=== PATIENT | female | born 1960 | race Caucasian/White ===

== ENCOUNTER 2016-05-12 21:25 | Emergency (ER) | payer MEDICARE, OTHER ==
[2016-05-12 19:31] LABS: BASOPHILS 0.5 %; BASOPHILS ABSOLUTE 0.05 10/3/uL (0.0-0.16); EOSINOPHILS 1.2 %; EOSINOPHILS ABSOLUTE 0.12 10/3/uL (0.0-0.53); HEMATOCRIT 41.7 % (36.0-48.0); HEMOGLOBIN 13.9 g/dL (12.0-16.0); IMMATURE GRANULOCYTES 0.2 %; IMMATURE GRANULOCYTES ABSOLUTE 0.02 10/3/uL (0.0-0.11); LYMPHOCYTES 49.8 %; LYMPHOCYTES ABSOLUTE 4.88 10/3/uL (0.67-4.30); MEAN CORPUS HGB CONC 33.3 g/dL (32.0-36.0); MEAN CORPUSCULAR HEMOGLOB 30.2 pg (26.0-34.0); MEAN CORPUSCULAR VOLUME 90.5 fL (80-100); MEAN PLATELET VOLUME 8.7 fL (9.2-13.0); MONOCYTES ABSOLUTE 0.88 10/3/uL (0.21-1.20); NEUTROPHILS 39.3 %; NEUTROPHILS ABSOLUTE 3.84 10/3/uL (2.02-8.40); PLATELET COUNT 364 10/3/uL (150-400); RED CELL COUNT 4.61 10/6/uL (4.0-5.6); WHITE BLOOD CELLS 9.8 10/3/uL (4.5-10.5)
[2016-05-12 19:32] LABS: MANUAL DIFF NO %
[2016-05-12 19:46] LABS: ALBUMIN 3.5 G/DL (3.5-5.0); BUN (BLOOD UREA NITROGEN) 11 MG/DL (6-23); CALCIUM, SERUM 8.7 MG/DL (8.5-10.4); CHLORIDE, SERUM 109 MMOL/L (96-112); CO2 (CARBON DIOXIDE) 26 MMOL/L (24-34); CREATININE 0.92 MG/DL (0.55-1.02); GFR AFRICAN AMERICAN 81 ML/MIN (>=60); GFR NON AFRICAN AMERICAN 70 ML/MIN (>=60); GLOBULIN 3.5 G/DL (2.5-4.1); GLUCOSE, SERUM 99 MG/DL (60-99); POTASSIUM, SERUM 3.6 MMOL/L (3.5-5.3); SGOT(AST) 26 U/L (5-40); SGPT(ALT) 23 U/L (5-65); SODIUM, SERUM 144 MMOL/L (135-148); TOTAL BILIRUBIN 0.2 MG/DL (0-1.2)
[2016-05-12 19:48] LABS: ALKALINE PHOSPHATASE 82 U/L (45-117)
[2016-05-12 20:24] LABS: ASCORBIC ACID (UR NOT ORDER) 40 (NEG); BILIRUBIN, URINE NEGATIVE (NEG); ER URINALYSIS TAT 0 Hrs 47 Mins; KETONE, URINE NEGATIVE (NEG); LEUKOCYTE ESTERASE(NOT OR LARGE (NEG); NITRITE (URINE) NEG (NEG); WBC (NOT ORDERED) (RFLEX) > 182 (0-5)
[~2016-05-12 21:25] MED LIST: BONIVA150 MG PO; BUSPAR15 M1 PO; CARASPUDL PO; CRANBERRY1 TAB OR; CRESTOR10 PO; CYMBALTA60 PO; ELMIRON 100 MG100 MG PO; FISH OIL300 MG PO; K-TABS10 MEQ PO; KENCR.1 TOP; KLONO1 PO; KLOR-CON 1010 MEQ PO; KRILL OIL PO; L40 PO; LEVOTHYROXIN75 MCG PO; LIBRAX PO; LOP25 PO; MEDROXYPR AC2.5 MG OR; MEDROXYPR AC2.5 MG PO; MICRO-K10 MEQ PO; MIRAPEX125 PO; MIRAPEX250 PO; MOMUD PO; MULTIPLE VIT PO; MULTIVIT/MIN PO; MULTIVITAMI1 PO; NATURA2 OP; NEXIUM40 PO; OCUVITE PO; OTC STOOL SOFTENER PO; P125 PO; P5 PO; PRILOSEC40 MG PO; PROVERA 2.5 MG2.5 MG OR; PROVERA2.5 MG PO; PVC V; RANITIDINE300 MG PO; SENTAB PO; SUCR PO; SYN075 PO; TOPAMAX100 PO; TOPAMAX25 PO; TUMS E-X750 M2 PO; TUMSROLL PO; VITAMIN D31000 UNIT PO; VIVELLE SY0.1 MG/24 TOP; VIVELLE-DOT0.1 MG TOP; VIVELLE0.1 MG TD
[2016-05-26] MEDS ORDERED: TEARS PURE OPH (12:26)
[2016-09-06] MEDS ORDERED: METHENAM HIP1 GM PO (15:02)
[2016-09-06] MEDS ORDERED: REG5 PO (15:03)
== END 2016-05-12 21:46 | disposition home or self-care (01) ==
LOC: ER 21:25
PROVIDERS: Hospitalist
DX: N39.0 Urinary tract infection, site not specified (principal); K21.9 Gastro-esophageal reflux disease without esophagitis; Z88.1 Allergy status to other antibiotic agents; Z88.0 Allergy status to penicillin; Z88.8 Allergy status to other drugs, medicaments and biological substances; Z88.2 Allergy status to sulfonamides; Z79.899 Other long term (current) drug therapy
CPT/HCPCS: 80053; 81001; 83690; 84703; 85025; 87077; 87086; 87186; 96372; 99283; A9270-GY; J1170

== ENCOUNTER 2016-05-26 12:26 | Emergency (ER) | payer MEDICARE, OTHER ==
[~2016-05-26 12:26] MED LIST changes: +TEARS PURE OPH
[2016-05-26] MEDS ORDERED: OMNICEF300 PO (12:27)
[2016-05-26] MEDS ORDERED: PVC V (12:28)
[2016-05-26] MEDS ORDERED: MINIVELLE1 EAC1 TOP (12:29)
[2016-05-26] MEDS ORDERED: PROVERA2.5 MG PO (12:29)
[2016-05-26] MEDS ORDERED: NEXIUM40 PO (12:30)
[2016-05-26] MEDS ORDERED: LIBRAX PO (12:30)
[2016-05-26] MEDS ORDERED: LINZESS 290 M290 MCG PO (12:30)
[2016-05-26] MEDS ORDERED: TOPAMAX25 PO (12:30)
[2016-05-26] MEDS ORDERED: ZANTAC300 MG PO (12:31)
[2016-05-26] MEDS ORDERED: LEVOTHYROXIN75 MCG PO (12:32)
[2016-05-26] MEDS ORDERED: GI COCKTAIL PO (12:32)
[2016-05-26] MEDS ORDERED: MIRAPEX250 PO (12:33)
[2016-05-26] MEDS ORDERED: CRESTOR10 PO (12:33)
[2016-05-26] MEDS ORDERED: LOP25 PO (12:34)
[2016-05-26] MEDS ORDERED: BUSPAR15 M1 PO (12:34)
[2016-05-26] MEDS ORDERED: K-TABS10 MEQ PO (12:34)
[2016-05-26] MEDS ORDERED: TUMS E-X750 M2 PO (12:35)
[2016-05-26] MEDS ORDERED: FAMCICLOVIR250 MG PO (12:35)
[2016-05-26] MEDS ORDERED: PCET PO (12:35)
[2016-05-26] MEDS ORDERED: VITAMIN D31000 UNIT PO (12:36)
[2016-05-26] MEDS ORDERED: PROBIOTIC PO (12:36)
[2016-05-26] MEDS ORDERED: KRILLOIL PO (12:37)
[2016-05-26] MEDS ORDERED: OCUVITE PO (12:37)
[2016-05-26] MEDS ORDERED: HALF81 PO (12:38)
[2016-05-26] MEDS ORDERED: MAGNESIUM SULFATE PO (12:39)
[2016-05-26] MEDS ORDERED: BIST PO (12:39)
[2016-05-26 12:43] LABS: BASOPHILS 0.2 %; BASOPHILS ABSOLUTE 0.02 10/3/uL (0.0-0.16); EOSINOPHILS 2.3 %; EOSINOPHILS ABSOLUTE 0.21 10/3/uL (0.0-0.53); ER CBC TAT 0 Hrs 07 Mins; HEMOGLOBIN 12.3 g/dL (12.0-16.0); IMMATURE GRANULOCYTES 0.2 %; IMMATURE GRANULOCYTES ABSOLUTE 0.02 10/3/uL (0.0-0.11); LYMPHOCYTES 36.6 %; LYMPHOCYTES ABSOLUTE 3.32 10/3/uL (0.67-4.30); MEAN CORPUS HGB CONC 33.3 g/dL (32.0-36.0); MEAN CORPUSCULAR HEMOGLOB 29.9 pg (26.0-34.0); MEAN CORPUSCULAR VOLUME 89.8 fL (80-100); MEAN PLATELET VOLUME 9.4 fL (9.2-13.0); MONOCYTES 9.1 %; MONOCYTES ABSOLUTE 0.83 10/3/uL (0.21-1.20); NEUTROPHILS 51.6 %; NEUTROPHILS ABSOLUTE 4.68 10/3/uL (2.02-8.40); PLATELET COUNT 343 10/3/uL (150-400); RBC DISTRIBUTION WIDTH 13.5 % (12.0-16.0); RED CELL COUNT 4.11 10/6/uL (4.0-5.6); WHITE BLOOD CELLS 9.1 10/3/uL (4.5-10.5)
[2016-05-26 12:44] LABS: HEMATOCRIT 36.9 % (36.0-48.0); MANUAL DIFF NO %
[2016-05-26 12:59] LABS: ASCORBIC ACID (UR NOT ORDER) 40 (NEG); BILIRUBIN, URINE NEGATIVE (NEG); ER URINALYSIS TAT 0 Hrs 14 Mins; KETONE, URINE NEGATIVE (NEG); LEUKOCYTE ESTERASE(NOT OR LARGE (NEG); NITRITE (URINE) NEG (NEG); WBC (NOT ORDERED) (RFLEX) > 182 (0-5)
[2016-05-26 13:04] LABS: ALBUMIN 3.2 G/DL (3.5-5.0); ALKALINE PHOSPHATASE 75 U/L (45-117); BUN (BLOOD UREA NITROGEN) 14 MG/DL (6-23); CALCIUM, SERUM 8.3 MG/DL (8.5-10.4); CHLORIDE, SERUM 106 MMOL/L (96-112); CO2 (CARBON DIOXIDE) 27 MMOL/L (24-34); CREATININE 0.85 MG/DL (0.55-1.02); GFR AFRICAN AMERICAN 89 ML/MIN (>=60); GFR NON AFRICAN AMERICAN 77 ML/MIN (>=60); GLOBULIN 3.3 G/DL (2.5-4.1); GLUCOSE, SERUM 84 MG/DL (60-99); POTASSIUM, SERUM 3.6 MMOL/L (3.5-5.3); SGOT(AST) 19 U/L (5-40); SGPT(ALT) 17 U/L (5-65); SODIUM, SERUM 142 MMOL/L (135-148); TOTAL PROTEIN 6.5 G/DL (6.0-8.5)
[2016-05-26 13:05] LABS: TOTAL BILIRUBIN 0.7 MG/DL (0-1.2)
[2016-09-06] MEDS ORDERED: METHENAM HIP1 GM PO (15:02)
[2016-09-06] MEDS ORDERED: REG5 PO (15:03)
== END 2016-05-26 17:41 | disposition home or self-care (01) ==
LOC: ER 12:26
PROVIDERS: Hospitalist
DX: N39.0 Urinary tract infection, site not specified (principal); K21.9 Gastro-esophageal reflux disease without esophagitis; F32.9 Major depressive disorder, single episode, unspecified; Z88.1 Allergy status to other antibiotic agents; Z88.0 Allergy status to penicillin; Z88.2 Allergy status to sulfonamides; Z88.8 Allergy status to other drugs, medicaments and biological substances; Z79.82 Long term (current) use of aspirin; Z79.899 Other long term (current) drug therapy
CPT/HCPCS: 80053; 81001; 85025; 87077; 87086; 87186; 96365; 99284; A9270-GY; J2185

== ENCOUNTER 2016-06-10 17:48 | Emergency (ER) | payer MEDICARE, OTHER ==
[~2016-06-10 17:48] MED LIST changes: +BIST PO; +FAMCICLOVIR250 MG PO; +GI COCKTAIL PO; +HALF81 PO; +KRILLOIL PO; +LINZESS 290 M290 MCG PO; +MAGNESIUM SULFATE PO; +MINIVELLE1 EAC1 TOP; +OMNICEF300 PO; +PCET PO; +PROBIOTIC PO; +ZANTAC300 MG PO
[2016-06-10 18:16] LABS: ASCORBIC ACID (UR NOT ORDER) 40 (NEG); BILIRUBIN, URINE NEGATIVE (NEG); ER URINALYSIS TAT 0 Hrs 18 Mins; KETONE, URINE TRACE MG/DL (NEG); LEUKOCYTE ESTERASE(NOT OR LARGE (NEG)
[2016-06-10 18:17] LABS: NITRITE (URINE) POS (NEG); WBC (NOT ORDERED) (RFLEX) > 182 (0-5)
[2016-06-10 18:17] LABS: BASOPHILS 0.2 %; BASOPHILS ABSOLUTE 0.02 10/3/uL (0.0-0.16); EOSINOPHILS 1.2 %; ER CBC TAT 0 Hrs 19 Mins; HEMATOCRIT 38.1 % (36.0-48.0); HEMOGLOBIN 12.6 g/dL (12.0-16.0); IMMATURE GRANULOCYTES 0.1 %; IMMATURE GRANULOCYTES ABSOLUTE 0.01 10/3/uL (0.0-0.11); LYMPHOCYTES 37.7 %; MANUAL DIFF NO %; MEAN CORPUS HGB CONC 33.1 g/dL (32.0-36.0); MEAN CORPUSCULAR HEMOGLOB 29.8 pg (26.0-34.0); MEAN CORPUSCULAR VOLUME 90.1 fL (80-100); MEAN PLATELET VOLUME 8.7 fL (9.2-13.0); MONOCYTES 8.1 %; MONOCYTES ABSOLUTE 0.67 10/3/uL (0.21-1.20); NEUTROPHILS 52.7 %; NEUTROPHILS ABSOLUTE 4.33 10/3/uL (2.02-8.40); PLATELET COUNT 348 10/3/uL (150-400); RBC DISTRIBUTION WIDTH 13.8 % (12.0-16.0); RED CELL COUNT 4.23 10/6/uL (4.0-5.6); WHITE BLOOD CELLS 8.2 10/3/uL (4.5-10.5)
[2016-06-10 18:22] LABS: ALBUMIN 3.4 G/DL (3.5-5.0); ALKALINE PHOSPHATASE 79 U/L (45-117); BUN (BLOOD UREA NITROGEN) 14 MG/DL (6-23); CALCIUM, SERUM 8.8 MG/DL (8.5-10.4); CHLORIDE, SERUM 108 MMOL/L (96-112); CO2 (CARBON DIOXIDE) 27 MMOL/L (24-34); CREATININE 0.84 MG/DL (0.55-1.02); GFR AFRICAN AMERICAN 90 ML/MIN (>=60); GFR NON AFRICAN AMERICAN 78 ML/MIN (>=60); GLOBULIN 3.3 G/DL (2.5-4.1); GLUCOSE, SERUM 107 MG/DL (60-99); POTASSIUM, SERUM 3.5 MMOL/L (3.5-5.3); SGOT(AST) 20 U/L (5-40); SGPT(ALT) 17 U/L (5-65); SODIUM, SERUM 141 MMOL/L (135-148); TOTAL BILIRUBIN 0.4 MG/DL (0-1.2); TOTAL PROTEIN 6.7 G/DL (6.0-8.5)
[2016-09-06] MEDS ORDERED: METHENAM HIP1 GM PO (15:02)
[2016-09-06] MEDS ORDERED: REG5 PO (15:03)
== END 2016-06-11 02:06 | disposition home or self-care (01) ==
LOC: ER 17:48
PROVIDERS: Emergency Medicine
DX: N39.0 Urinary tract infection, site not specified (principal); Z88.1 Allergy status to other antibiotic agents; Z88.0 Allergy status to penicillin; Z88.6 Allergy status to analgesic agent; Z88.2 Allergy status to sulfonamides; Z79.899 Other long term (current) drug therapy; Z88.8 Allergy status to other drugs, medicaments and biological substances; Z79.82 Long term (current) use of aspirin
CPT/HCPCS: 80053; 81001; 83690; 85025; 87077; 87086; 87186; 96365; 96375; 99284; A9270-GY; J1580; J3010